=== PATIENT | female | born 2000 | race Caucasian/White ===

== ENCOUNTER 2018-07-15 00:35 | Emergency (ER) | payer OTHER ==
[2018-07-15 00:39] VITALS: BP 124/74
--- NOTE | 2018-07-15 01:00 | EDPHY ---
H & P Stated Complaint: LOWER ABD PAIN AND L FLANK PAIN X 2 DAYS Time Seen by Provider: 07/15/18 00:37 HPI/ROS: Chief Complaint: Flank pain, abdominal pain HPI: 18-year-old G0 woman with no medical history presenting with 2 days of left flank and left lower abdominal pain. Pain is been getting worse. Is currently a 6/10. She did have some relief with ibuprofen. Does not have a history of similar pain in the past. No urinary urgency or frequency. She is sexually active. She does take oral contraceptives. No history of sexually transmitted infections. No vaginal discharge. Last menstrual cycle ended 4 days ago was normal. No nausea or vomiting. Has had some constipation. ROS: 10 systems were reviewed and were negative except those elements noted in the HPI. PMH: Denies Social History: No smoking, is college student Family History: non-contributory Physical Exam: Gen: Awake, Alert, No Distress HEENT: Nose: no rhinorrhea Eyes: PERRLA, EOMI Mouth: Moist mucosa Neck: Supple, no JVD Chest: nontender, lungs clear to auscultation Heart: S1, S2 normal, no murmur Abd: Soft, mild left adnexal tenderness without guarding Back: no CVA tenderness, no midline tenderness Ext: no edema, non-tender Skin: no rash Neuro: CN II-XII intact, Sensation grossly intact, Strength 5/5 in bilateral upper and lower extremities - Personal History LMP (Females 10-55): 1-7 Days Ago Current Tetanus Diphtheria and Acellular Pertussis (TDAP): Yes - Medical/Surgical History Hx Asthma: No Hx Chronic Respiratory Disease: No Hx Diabetes: No Hx Cardiac Disease: No Hx Renal Disease: No Hx Cirrhosis: No Hx Alcoholism: No Hx HIV/AIDS: No Hx Splenectomy or Spleen Trauma: No Other PMH: DENIES - Social History Smoking Status: Never smoked Constitutional: Initial Vital Signs Temperature (C) 36.8 C 07/15/18 00:38 Heart Rate 88 07/15/18 00:38 Respiratory Rate 16 07/15/18 00:38 Blood Pressure 124/74 H 07/15/18 00:38 O2 Sat (%) 98 07/15/18 00:38 O2 Delivery Mode Room Air Allergies/Adverse Reactions: No Known Allergies Allergy (Unverified 07/15/18 00:37) Home Medications: Medication Instructions Recorded Control 07/15/18 Nitrofurantoin Monohyd/M-Cryst 100 mg PO BID #8 capsule 07/15/18 [Macrobid 100 mg Capsule] Phenazopyridine HCl [Pyridium] 200 mg PO TID #6 tab 07/15/18 Medical Decision Making - Data Points Laboratory Results: 07/15/18 07/15/18 00:25 00:25 Urine Color YELLOW Urine Appearance MODERATELY TURBID Urine pH 5.0 (5.0-7.5) Ur Specific [place] 1.017 (1.002-1.030) Urine Protein 2+ H (NEGATIVE) Urine Ketones NEGATIVE (NEGATIVE) Urine Blood 3+ H (NEGATIVE) Urine Nitrate NEGATIVE (NEGATIVE) Urine Bilirubin NEGATIVE (NEGATIVE) Urine Urobilinogen NEGATIVE EU EU (0.2-1.0) Ur Leukocyte Esterase 3+ H (NEGATIVE) Urine RBC Pending Urine WBC Pending Ur Epithelial Cells Pending Urine Glucose NEGATIVE (NEGATIVE) Urine Test Pending Departure - Departure Disposition: Home, Routine, Self-Care Clinical Impression: Urinary tract infection Condition: Good Instructions: Urinary Tract Infection in Women (ED) Additional Instructions: Please take your full course of antibiotics. Follow up at [facility] in 4-5 days if symptoms are not improving. Referrals: [facility],. [Clinic] - As per Instructions Prescriptions: Nitrofurantoin Monohyd/M-Cryst [Macrobid 100 mg Capsule] 100 mg PO BID #8 capsule Phenazopyridine HCl [Pyridium] 200 mg PO TID #6 tab
[2018-07-15] MEDS ORDERED: NITROFURANTOIN 100MG PREPACK#2 BTL TAKEHOME ONE (01:18)
[2018-07-15] MEDS ORDERED: PHENAZOPYRIDINE HCL 200 MG TAB PO ONE (01:18)
== END 2018-07-15 01:28 | disposition home or self-care (01) ==
DX: N39.0 Urinary tract infection, site not specified (principal)

== ENCOUNTER 2018-07-16 17:19 | Emergency (ER) | payer OTHER ==
[2018-07-16 18:55] LABS: PLATELET COUNT 188 10^3/uL (150-400)
[2018-07-16] MEDS ORDERED: NS 1,000 ML IV ONE (19:05)
[2018-07-16] MEDS ORDERED: ACETAMINOPHEN 500 MG TAB PO ONE (19:09)
--- NOTE | 2018-07-16 19:09 | EDPHY ---
General - History Smoking Status: Never smoked Time Seen by Provider: 07/16/18 18:27 Narrative: CLINICAL IMPRESSION: Urinary tract infection ASSESSMENT/PLAN: 18-year-old female returns to the emerged department 2 days after she was seen the emergency department for UTI with complaints of persistent dysuria and left flank pain well as developed fevers. No associated nausea, vomit, lower pelvic pain or incontinence. Reported history of nephrolithiasis. 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 Normal renal function today. No clinical signs of severe dehydration. Mild leukocytosis of 11 appreciated. Urine does appear infected. Urine culture ordered today. I do not see that a urine culture was ordered 2 days ago. Patient was given IV antibiotics per parents request and I changed her to Keflex from her prescription of Macrobid provided 2 days ago. Encouraged PCP recheck. Warning signs return to ED sooner outlined and discharge. DIFFERENTIAL DX: Differential includes but not limited to urinary tract infection, pyelonephritis , nephrolithiasis, ureterolithiasis, acute renal insufficiency, dehydration. ED PROCEDURES: See lab and/or imaging results below ED COURSE: 6:45 p.m.: Patient seen and assessed by myself. Alert, oriented, nontoxic, nonseptic appearing. She is mildly tachycardic. Plan for IV fluid bolus. Patient's parents are requesting an IV dose of antibiotics. Urine does appear infected. No urine culture ordered Saturday. Urine culture ordered today. Labs pending. 7:15 p.m.: Labs reviewed by myself. No acute renal insufficiency. Urine does appear infected, culture ordered. Family requesting a dose of IV antibiotics in the ED. Mild leukocytosis of 11 noted. CHIEF COMPLAINT: Worsening UTI symptoms HPI: Pleasant 18-year-old female presents to the emergency department with her parents for concerns of worsening UTI symptoms. Patient was seen in our emergency department on Saturday, diagnosed with the UTI, started on Macrobid. She reports since Saturday she has begun to develop fevers and chills. No nausea or vomiting. She reports the same amount of dysuria and left-sided flank pain. No visible hematuria. She is not currently on her menstrual cycle, denies abnormal discharge. She had a negative test on Saturday. No history of kidney stones. She has been eating and drinking well. Her father noted today that her heart seemed to be racing and she states that she did have fevers throughout today. She last took ibuprofen 2 hr ago. She was noted to have a horseshoe kidney on incidental CT scan a couple years ago as well as a septate uterus. She has never had complications from either of these and does not plan to become soon. She is otherwise healthy. PAST MEDICAL HISTORY: None reported See triage summary and nurse notes for addition applicable history Pertinent Past Surgical History: None reported Family History: Mother with a history of kidney stones Social History: Student at [employer] REVIEW OF SYSTEMS: A full 10 point review of systems was negative except for those mentioned in HPI. PHYSICAL EXAM: General Appearance: Alert, oriented, appropriate, cooperative, NAD, well hydrated, non-toxic appearing, low-grade fever, tachycardic at 10:06 a.m., no hypoxia. Respiratory: There are no retractions, lungs are clear to auscultation. Cardiac: Tachycardic, regular rhythm, no murmurs or gallops. Gastrointestinal: Abdomen is soft, nontender, bowel sounds normal, no masses/ hernia, no rigidity, guarding or focal peritoneal findings. No reproducible flank pain. Skin: Warm, dry, no rashes, no nodules on palpation. MEDICAL DECISION MAKING: Patient was seen independently. Secondary supervising physician at time of evaluation was: Dr. Acosta . Diagnosis: Urinary tract infection, microscopic hematuria. New, requires workup Summary: See Assessment and Plan for summary of ED visit Clinical lab tests: ordered / reviewed. Decision to obtain medical records or history from someone other than the patient: Patient's parents Review / Summarize previous medical records: Reviewed recent ED notes Discussed patient with another provider: No Patient Progress: Stable for discharge. (Christopher Horton) Medical Decision Making: I did not see this patient while she was in the emergency department. However her care was discussed with the PA while the patient was in the department. I agree with treatment plan and management (Louis Acosta) - Objective Vital Signs: Initial Vital Signs Temperature (C) 37.5 C 07/16/18 17:36 Heart Rate 115 H 07/16/18 17:36 Respiratory Rate 16 07/16/18 17:36 Blood Pressure 101/60 07/16/18 17:36 O2 Sat (%) 97 07/16/18 17:36 O2 Delivery Mode Room Air Allergies/Adverse Reactions: No Known Allergies Allergy (Unverified 07/15/18 00:37) Home Medications: Medication Instructions Recorded Control 07/15/18 Nitrofurantoin Monohyd/M-Cryst 100 mg PO BID #8 capsule 07/15/18 [Macrobid 100 mg Capsule] Phenazopyridine HCl [Pyridium] 200 mg PO TID #6 tab 07/15/18 Cephalexin [Keflex (*)] 500 mg PO QID #20 cap 07/16/18 Laboratory Results: Laboratory Results 07/16/18 18:45 07/16/18 18:45 07/16/18 07/16/18 07/16/18 18:45 18:45 18:15 WBC 11.56 10^3/uL H 10^3/uL (3.80-9.50) RBC 3.67 10^6/uL L 10^6/uL (4.18-5.33) Hgb 11.5 g/dL L g/dL (12.6-16.3) Hct 32.8 % L % (38.0-47.0) MCV 89.4 fL fL (81.5-99.8) MCH 31.3 pg pg (27.9-34.1) MCHC 35.1 g/dL g/dL (32.4-36.7) RDW 12.3 % % (11.5-15.2) Plt Count 188 10^3/uL 10^3/uL (150-400) MPV 8.2 fL L fL (8.7-11.7) Neut % (Auto) 80.8 % H % (39.3-74.2) Lymph % (Auto) 9.1 % L % (15.0-45.0) [place] % (Auto) 9.5 % % (4.5-13.0) Eos % (Auto) 0.1 % L % (0.6-7.6) Baso % (Auto) 0.2 % L % (0.3-1.7) Nucleat RBC Rel Count 0.0 % % (0.0-0.2) Absolute Neuts (auto) 9.35 10^3/uL H 10^3/uL (1.70-6.50) Absolute Lymphs (auto) 1.05 10^3/uL 10^3/uL (1.00-3.00) Absolute Monos (auto) 1.10 10^3/uL H 10^3/uL (0.30-0.80) Absolute Eos (auto) 0.01 10^3/uL L 10^3/uL (0.03-0.40) Absolute Basos (auto) 0.02 10^3/uL 10^3/uL (0.02-0.10) Absolute Nucleated RBC 0.00 10^3/uL 10^3/uL (0-0.01) Immature Gran % 0.3 % % (0.0-1.1) Immature Gran # 0.03 10^3/uL 10^3/uL (0.00-0.10) Sodium 132 mEq/L L mEq/L (135-145) Potassium 3.7 mEq/L mEq/L (3.5-5.2) Chloride 100 mEq/L mEq/L (97-110) Carbon Dioxide 22 mEq/l mEq/l (22-31) Anion Gap 10 mEq/L mEq/L (6-14) BUN 14 mg/dL mg/dL (7-23) Creatinine 0.8 mg/dL mg/dL (0.6-1.0) Estimated GFR > 60 Glucose 99 mg/dL mg/dL (70-100) Calcium 8.8 mg/dL mg/dL (8.5-10.4) Urine Color SHIRA Urine Appearance HAZY Urine pH 6.0 (5.0-7.5) Ur Specific [place] 1.016 (1.002-1.030) Urine Protein NEGATIVE (NEGATIVE) Urine Ketones NEGATIVE (NEGATIVE) Urine Blood 1+ H (NEGATIVE) Urine Nitrate POSITIVE H (NEGATIVE) Urine Bilirubin NEGATIVE (NEGATIVE) Urine Urobilinogen 2.0 EU H EU (0.2-1.0) Ur Leukocyte Esterase NEGATIVE (NEGATIVE) Urine RBC 1-3 /hpf /hpf (0-3) Urine WBC 3-5 /hpf H /hpf (0-3) Ur Epithelial Cells 2+ /lpf H /lpf (NONE-1+) Urine Bacteria TRACE /hpf H /hpf (NONE SEEN) Urine Mucus TRACE /lpf /lpf (NONE-1+) Urine Glucose NEGATIVE (NEGATIVE) Medications Given: Discontinued Medications Acetaminophen (Tylenol) 1,000 mg PO EDNOW ONE Stop: 07/16/18 19:10 Last Admin: 07/16/18 19:14 Dose: 1,000 mg Ceftriaxone Sodium/Dextrose (Rocephin 1 Gm (Premix)) 50 mls @ 100 mls/hr IV EDNOW ONE PRN Reason: Protocol Stop: 07/16/18 19:34 Last Admin: 07/16/18 19:13 Dose: 50 mls Sodium Chloride (Ns) 1,000 mls @ 0 mls/hr IV EDNOW ONE; Wide Open PRN Reason: Protocol Stop: 07/16/18 19:06 Last Admin: 07/16/18 19:13 Dose: 1,000 mls Departure - Departure Disposition: Home, Routine, Self-Care Clinical Impression: UTI (urinary tract infection), Microscopic hematuria Condition: Good Instructions: Cephalexin (By mouth), Urinary Tract Infection in Women (ED) Additional Instructions: DISCHARGE INSTRUCTIONS FROM YOUR DOCTOR Thank you for visiting our emergency department today. You were treated by a physician diet assistant today and your case was reviewed with our ED Attending physician. Please keep in mind that discharge from the emergency department does not mean that there is nothing wrong - it simply means that we have not identified an emergency condition that requires further evaluation or treatment in the hospital. You should always plan to follow up with primary care for re- evaluation of your condition in the next 2-3 days. If you have been referred to a specialist, please call as soon as possible (today or tomorrow) to schedule your follow up appointment at the appropriate time. URINE CONTINUES TO BE INFECTED IN THE EMERGENCY DEPARTMENT TODAY AND A URINE CULTURE WAS ORDERED. WE WILL CONTACT YOU IN 2-3 DAYS IF THE ANTIBIOTIC WE PLACED YOU ON TODAY NEEDS TO BE CHANGED. LAB WORK SHOWED A MILD ELEVATION IN YOUR INFECTION FIGHTING COUNT TO 11, MILD ANEMIA, BUT NORMAL RENAL FUNCTION. YOU RECEIVED AN IV DOSE OF CEFTRIAXONE AND A NEW PRESCRIPTION FOR KEFLEX. PLEASE TAKE A COMPLETE COURSE OF ANTIBIOTICS DIRECTED. PLEASE FOLLOW UP WITH A PRIMARY CARE DOCTOR OR [facility] FOR REPEAT URINE STUDY EARLY NEXT WEEK TO ENSURE RESOLUTION OF INFECTION AND BLOOD IN THE URINE. PLEASE RETURN TO THE EMERGENCY DEPARTMENT IMMEDIATELY FOR PERSISTENT HIGH FEVERS , NAUSEA OR VOMITING, SEVERE ABDOMINAL PAIN, DIFFICULTY URINATING OR URINARY INCONTINENCE, SEVERE FLANK PAIN, OR ANY OTHER CONCERNS. People present with illnesses and injuries in different ways, and it is always possible that we have missed something. You may always return for re-evaluation if symptoms worsen or if they are not improving or if you develop new/different symptoms. Again, thank you for choosing our emergency department. We hope that you feel better. Referrals: NONE *PRIMARY CARE P,. [Primary Care Provider] - As per Instructions [facility] [Cl[facility]] - 2-3 days without fail Prescriptions: Cephalexin [Keflex (*)] 500 mg PO QID #20 cap
[2018-07-16 19:54] VITALS: BP 111/64
== END 2018-07-16 20:21 | disposition home or self-care (01) ==
DX: N39.0 Urinary tract infection, site not specified (principal); R31.29 Other microscopic hematuria
CPT/HCPCS: 96365; J0696